=== PATIENT | female | born 1955 | race Caucasian/White ===

== ENCOUNTER 2017-10-08 02:11 | Inpatient (IN) | payer MEDICAID ==
[~2017-10-08] VITALS: Ht 162.6 cm; Wt 78.1 kg
[2017-10-08 02:20] VITALS: Ht 162.6 cm; Wt 78.1 kg
[2017-10-08 04:35] LABS: BASOPHIL % 0.4 % (0-2); RED CELL DISTRIBUTION WIDTH 13.8 % (11.5-14.5)
[2017-10-08 04:39] LABS: PLATELET COUNT 429 x10^3mcL (130-400)
[2017-10-08 04:45] LABS: CALCIUM 8.5 mg/dL (8.5-10.1); CARBON DIOXIDE 30.1 mmol/L (21-32); CHLORIDE SERUM 106 mmol/L (98-107); CREATININE SERUM 0.7 mg/dL (0.6-1.0); GFR1 > 60 mL/min; GLUCOSE SERUM 109 mg/dL (74-106); POTASSIUM SERUM 3.7 mmol/L (3.5-5.1); SODIUM SERUM 145 mmol/L (136-145)
[2017-10-08 04:50] LABS: ALKALINE PHOSPHATASE 126 U/L (46-116); ALT/SGPT 28 U/L (14-59); AST/SGOT 23 U/L (15-37); BILIRUBIN TOTAL 0.43 mg/dL (0.20-1.00); TOTAL PROTEIN, SERUM 7.5 g/dL (6.4-8.2)
[2017-10-08 04:56] LABS: CHOLESTEROL/HDL RATIO 3.6; MAGNESIUM 2.1 mg/dL (1.8-2.4); PHOSPHOROUS 3.4 mg/dL (2.5-4.9)
[2017-10-08 05:01] LABS: ALBUMIN 3.1 g/dL (3.4-5.0)
[2017-10-08 05:09] LABS: FREE T4 1.23 ng/dL (0.76-1.46); FREE THYROXINE INDEX 4.1 ug/dL (1.4-4.5); T4(THYROXINE) 11.6 ug/dL (4.7-13.3)
[2017-10-08 05:16] LABS: T3 TOTAL 1.62 ng/mL
[2017-10-08 05:22] VITALS: BP 179/75
[2017-10-08 06:40] VITALS: BP 154/64
[2017-10-08 09:36] VITALS: BP 147/51
[2017-10-08 10:08] LABS: UA SPECIFIC GRAVITY 1.025 (1.005-1.035); microscopic required? YES; urine erythrocyte NEGATIVE (NEGATIVE)
[2017-10-08 12:58] VITALS: BP 156/89
[2017-10-08 17:53] VITALS: BP 161/71
[2017-10-08 20:35] VITALS: BP 121/67
[2017-10-09 04:43] VITALS: BP 172/76
[2017-10-09 06:01] LABS: CALCIUM 7.9 mg/dL (8.5-10.1); CARBON DIOXIDE 29.1 mmol/L (21-32); CHLORIDE SERUM 115 mmol/L (98-107); CREATININE SERUM 0.7 mg/dL (0.6-1.0); GFR1 > 60 mL/min; GLUCOSE SERUM 81 mg/dL (74-106); PHOSPHOROUS 3.2 mg/dL (2.5-4.9); POTASSIUM SERUM 4.1 mmol/L (3.5-5.1); SODIUM SERUM 141 mmol/L (136-145)
[2017-10-09 06:06] LABS: BASOPHIL % 0.3 % (0-2); PLATELET COUNT 334 x10^3mcL (130-400)
[2017-10-09 09:56] VITALS: BP 166/68
[2017-10-09 17:34] VITALS: BP 172/74
[2017-10-10 06:01] VITALS: BP 179/81
[2017-10-10 06:43] LABS: CALCIUM 8.4 mg/dL (8.5-10.1); CHLORIDE SERUM 107 mmol/L (98-107); CREATININE SERUM 0.7 mg/dL (0.6-1.0); GFR1 > 60 mL/min; GLUCOSE SERUM 89 mg/dL (74-106); MAGNESIUM 1.9 mg/dL (1.8-2.4); PHOSPHOROUS 3.4 mg/dL (2.5-4.9); SODIUM SERUM 142 mmol/L (136-145)
[2017-10-10 07:30] LABS: BASOPHIL % 0.5 % (0-2); PLATELET COUNT 368 x10^3mcL (130-400); RED CELL DISTRIBUTION WIDTH 13.5 % (11.5-14.5)
[2017-10-10 08:27] VITALS: BP 163/63
[2017-10-10 12:20] VITALS: BP 167/57
[2017-10-10 16:30] VITALS: BP 156/61
[2017-10-10 17:12] VITALS: BP 155/60
[2017-10-10 20:28] VITALS: BP 152/67
[2017-10-11 05:33] VITALS: BP 189/76
[2017-10-11 06:18] LABS: BASOPHIL % 0.2 % (0-2); PLATELET COUNT 385 x10^3mcL (130-400); RED CELL DISTRIBUTION WIDTH 13.8 % (11.5-14.5)
[2017-10-11 06:31] LABS: CALCIUM 8.3 mg/dL (8.5-10.1); CARBON DIOXIDE 27.5 mmol/L (21-32); CHLORIDE SERUM 106 mmol/L (98-107); CREATININE SERUM 0.6 mg/dL (0.6-1.0); GFR1 > 60 mL/min; GLUCOSE SERUM 105 mg/dL (74-106); MAGNESIUM 1.8 mg/dL (1.8-2.4); PHOSPHOROUS 3.5 mg/dL (2.5-4.9); POTASSIUM SERUM 4.2 mmol/L (3.5-5.1); SODIUM SERUM 142 mmol/L (136-145)
[2017-10-11 09:38] VITALS: BP 157/64
[2017-10-11 18:10] VITALS: BP 173/65
[2017-10-11 20:53] VITALS: BP 187/69
[2017-10-11 22:34] VITALS: BP 153/50
[2017-10-12 05:35] VITALS: BP 106/49
[2017-10-12 06:02] LABS: BASOPHIL % 0.4 % (0-2); PLATELET COUNT 395 x10^3mcL (130-400); RED CELL DISTRIBUTION WIDTH 13.6 % (11.5-14.5)
[2017-10-12 06:14] LABS: CALCIUM 8.1 mg/dL (8.5-10.1); CARBON DIOXIDE 27.9 mmol/L (21-32); CHLORIDE SERUM 106 mmol/L (98-107); CREATININE SERUM 0.6 mg/dL (0.6-1.0); GFR1 > 60 mL/min; GLUCOSE SERUM 90 mg/dL (74-106); POTASSIUM SERUM 3.5 mmol/L (3.5-5.1); SODIUM SERUM 142 mmol/L (136-145)
[2017-10-12 09:19] VITALS: BP 181/74
[2017-10-12] MEDS ORDERED: ATORVASTATIN CA40 M1 PO (09:57)
[2017-10-12] MEDS ORDERED: CAL80 PO (09:57)
[2017-10-12] MEDS ORDERED: ZESTRIL20 MG PO (09:58)
[2017-10-12] MEDS ORDERED: PEPCID20 MG PO (12:02)
[2017-10-12] MEDS ORDERED: ACETAMINOPHEN-H1 TA1 PO (12:02)
[2017-10-12 13:50] VITALS: BP 166/54
== END 2017-10-12 17:21 | disposition home health service (06) | DRG 313 ==
LOC: ED 02:11 → MU 04:25 → DU 04:25 → MU 10-09 11:33
PROVIDERS: Emergency Medicine; Family Medicine; Neuromusculoskeletal Medicine, Sports Medicine
PROC: 0LMQ0ZZ Reattachment of Right Knee Tendon, Open Approach (ICD-10-PCS; 2017-10-10)
PROC: 0LQQ0ZZ Repair Right Knee Tendon, Open Approach (ICD-10-PCS; 2017-10-10)
PROC: 0QBD0ZZ Excision of Right Patella, Open Approach (ICD-10-PCS; principal; 2017-10-10 13:00)
DX: S82.001A Unspecified fracture of right patella, initial encounter for closed fracture (principal); E87.8 Other disorders of electrolyte and fluid balance, not elsewhere classified; E44.0 Moderate protein-calorie malnutrition; E11.65 Type 2 diabetes mellitus with hyperglycemia; I10 Essential (primary) hypertension; D47.3 Essential (hemorrhagic) thrombocythemia; N39.0 Urinary tract infection, site not specified; E78.5 Hyperlipidemia, unspecified; W18.39XA Other fall on same level, initial encounter; Y93.89 Activity, other specified; Y92.89 Other specified places as the place of occurrence of the external cause; Y99.8 Other external cause status; E66.3 Overweight; Z68.29 Body mass index [BMI] 29.0-29.9, adult; I16.0 Hypertensive urgency; D64.9 Anemia, unspecified; Z88.6 Allergy status to analgesic agent; Z90.49 Acquired absence of other specified parts of digestive tract; Z98.51 Tubal ligation status; F17.200 Nicotine dependence, unspecified, uncomplicated; Z91.19 Patient's noncompliance with other medical treatment and regimen
CPT/HCPCS: 76001; 82962; 83880; 84439; 94150; 97110-GP; 97116-GP; 97530-GP; 97535-GP; C1713; J0360; J0690; J0696; J1644; J1885; J2175; J2250; J2405; J2704; J3010; J3490; J7030; Q0092

== ENCOUNTER 2019-08-19 12:06 | Emergency (ER) | payer OTHER, MEDICAID ==
[~2019-08-19] VITALS: Ht 165.1 cm; Wt 72.6 kg
[~2019-08-19 12:06] MED LIST: ACETAMINOPHEN-H1 TA1 PO; ATORVASTATIN CA40 M1 PO; CAL80 PO; PEPCID20 MG PO; ZESTRIL20 MG PO
[2019-08-19 12:21] VITALS: Ht 165.1 cm; Wt 72.6 kg
[2019-08-19 13:27] VITALS: BP 152/69
== END 2019-08-19 13:27 | disposition home or self-care (01) ==
LOC: ED 12:06
DX: N39.0 Urinary tract infection, site not specified (principal); I10 Essential (primary) hypertension; K21.9 Gastro-esophageal reflux disease without esophagitis; Z90.89 Acquired absence of other organs; Z90.49 Acquired absence of other specified parts of digestive tract; Z88.5 Allergy status to narcotic agent
CPT/HCPCS: J0696; J1885